=== PATIENT | male | born 1930 | race African-American/Black ===

== ENCOUNTER 2018-07-12 06:25 | Emergency (ER) | payer MEDICARE ==
[~2018-07-12] VITALS: Ht 175.3 cm; Wt 68.0 kg
[~2018-07-12 06:25] MED LIST: ACET1TAB12 PO; ALBU6.7H IH; AMIT10TA6 PO; AMLO10TA4 PO; ASPI-1159 PO; ATOR10TA PO; CHOL40002 PO; CLOP75TA16 PO; CYAN10009 PO; FERR-63 PO; FINA5TAB11 PO; FLUT1DIS3 IH; LORA10TA7 PO; LORATADINE 10 MG; LOSA50TA3 PO; METO25TA6 PO; OMEP20CA10 PO; RANI150T7 PO
[2018-07-12] MEDS ORDERED: SODIUM CHLORIDE 0.9% 1000ML BAG (SEPSIS BOLUS) IV ONE (07:15)
[2018-07-12 09:07] LABS: BASOPHILS % 0.7 % (0.0-2.0); EOSINOPHILS % 8.2 % (0.0-5.0); HEMATOCRIT. 30.8 % (42.0-52.0); HEMOGLOBIN. 10.7 g/dL (14.0-18.0); LYMPHOCYTES % 38.8 % (20.0-50.0); MEAN CORPUSCULAR HEMOGLOBIN 37.8 pg (28.0-32.0); MEAN CORPUSCULAR VOLUME 108.3 fL (80.0-94.0); MEAN PLATELET VOLUME 8.6 fl (7.4-10.4); MONOCYTES % 5.6 % (2.0-8.0); NEUTROPHILS % 46.7 % (40.0-76.0); PLATELET 382 x1000/uL (130-400); RED BLOOD CELL COUNT 2.84 mill/uL (4.7-6.1); RED CELL DISTRIBUTION WIDTH 15.3 % (11.6-14.6)
[2018-07-12 09:13] LABS: CHLORIDE 108 mEq/L (98-107)
[2018-07-12 09:16] LABS: INR 1.1; PROTHROMBIN TIME 11.2 sec (9.1-11.1)
[2018-07-12 09:52] LABS: CLARITY URINE CLEAR (CLEAR); COLOR URINE YELLOW (YELLOW); KETONES URINE TRACE (NEGATIVE); LEUKOCYTE ESTERASE URINE NEGATIVE (NEGATIVE); NITRITE URINE NEGATIVE (NEGATIVE); OCCULT BLOOD URINE NEGATIVE (NEGATIVE); PH URINE 5.5 (4.5-8.0); PROTEIN URINE NEGATIVE (NEGATIVE); SPECIFIC GRAVITY URINE 1.029 (1.005-1.030)
[2018-07-12 14:08] VITALS: BP 136/50
== END 2018-07-12 14:30 | disposition home or self-care (01) ==
LOC: ER 06:25 → CANBEDREQ 16:56
DX: J06.9 Acute upper respiratory infection, unspecified (principal); R05 Cough; R07.89 Other chest pain; M25.561 Pain in right knee; D53.9 Nutritional anemia, unspecified; J44.9 Chronic obstructive pulmonary disease, unspecified; I10 Essential (primary) hypertension; I69.928 Other speech and language deficits following unspecified cerebrovascular disease; I69.941 Monoplegia of lower limb following unspecified cerebrovascular disease affecting right dominant side
CPT/HCPCS: 36415; 71045; 73562; 80053; 81003; 83605; 84145; 84484; 85025; 85610; 87040; 87086; 87804; 93005; 93971; 99284; J7030